=== PATIENT | female | born 1970 | race Caucasian/White ===

== ENCOUNTER 2018-06-14 12:00 | Emergency (ER) | payer BC ==
[2018-06-14 12:05] VITALS: BP 164/98
--- NOTE | 2018-06-14 12:35 | UC ---
Skin Complaint HPI - HPI Summary HPI Summary: Patient is a 48-year-old female presenting to the 2 weeks after a cat scratch or bite (she is unsure.) She states the area began to become more red, slightly swollen and painful. She denies any fevers, sweats, chills. She denies any streaking from the red area. The redness and warmth begins approximately 4 cm chest below the knee and extending to the ankle on the anterior portion of the lower extremity. She has not been taking anything at home for the pain. She endorses 3/10 pain, only when palpated. - History of Current Complaint Chief Complaint: UCSkin Time Seen by Provider: 06/14/18 12:09 Stated Complaint: L LEG COMPLAINT Hx Obtained From: Patient Hx Last Menstrual Period: 06/12/18 ?: No Onset/Duration: Sudden Onset Skin Exposure Onset/Duration: Weeks Ago Onset Severity: Moderate Current Severity: Moderate Pain Intensity: 0 Pain Scale Used: 0-10 Numeric Location: Diffuse, Discrete - left anterior lower extremity Character: Swelling, Pain Aggravating Factor(s): Nothing Alleviating Factor(s): Nothing Associated Signs & Symptoms: Positive: Negative Related History: Possible Reaction to: Animal - Allergy/Home Medications Allergies/Adverse Reactions: Allergies Allergy/AdvReac Type Severity Reaction Status Date / Time No Known Allergies Allergy Verified 06/14/18 12:01 Home Medications: Home Medications Citalopram Hydrobromide [Citalopram HBr] 1 tab PO DAILY 06/14/18 [History Confirmed 06/14/18] PMH/Surg Hx/FS Hx/Imm Hx Previously Healthy: Yes - Surgical History Surgical History: Yes Surgery Procedure, Year, and Place: Breast BX 07/04/15 - benign - Family History Known Family History: Positive: Hypertension Negative: Cardiac Disease, Diabetes Family History: non contributory - Social History Occupation: Employed Full-time Lives: With Family Alcohol Use: None Substance Use Type: None Smoking Status (MU): Light Every Day Tobacco Smoker Type: Cigarettes - Immunization History Most Recent Influenza Vaccination: fall 2014 Most Recent Tetanus Shot: up to date per patient Review of Systems All Other Systems Reviewed And Are Negative: Yes Constitutional: Positive: Negative Skin: Positive: Rash, Other - left lower extremity erythema and warmth extending 4cm just distally from the knee and extending to just proximal to the ankle without streaking Respiratory: Positive: Negative Cardiovascular: Positive: Negative Motor: Positive: Negative, Other - denies decreased ROM Musculoskeletal: Positive: Edema - 1+ pitting edema to the L lower extremity Neurological: Positive: Negative Is Patient Immunocompromised?: Yes Physical Exam Triage Information Reviewed: Yes Appearance: Well-Appearing, No Pain Distress, Well-Nourished Vital Signs: Initial Vital Signs Temp 97.7 F 06/14/18 12:03 Pulse 93 06/14/18 12:03 Resp 17 06/14/18 12:03 BP 164/98 06/14/18 12:03 Pulse Ox 100 06/14/18 12:03 Vital Signs Reviewed: Yes Neck exam: Normal Neck: Positive: Supple Cardiovascular Exam: Normal Cardiovascular: Positive: RRR Musculoskeletal Exam: Normal Musculoskeletal: Positive: Strength Intact Neurological Exam: Normal Neurological: Positive: Alert Psychological: Positive: Normal Response To Family Skin: Positive: Other - left lower extremity erythema and warmth extending 4cm just distally from the knee and extending to just proximal to the ankle without streaking Course/Dx - Course Course Of Treatment: Patient is evaluated for left lower extremity pain, erythema, warmth and slight swelling. She denies any significant PMH. She denies any fevers, sweats, chills. She states this Scratched her or bit her 2 weeks ago and the area has been progressively worsening, more specifically over the last 4 days. Discussed with her at length return precautions. However, as patient is feeling otherwise well, not immunocompromised and erythema, warmth and redness is discretely located over the anterior portion of the left lower extremity, she will be discharged home with oral antibiotics. She is okay with this plan and discharge. Augmentin 875 twice daily 7 days. She is also encouraged ice and ibuprofen. - Differential Diagnoses - Skin Complaint Differential Diagnoses: Other - Cat scratch, cat bite - Diagnoses Provider Diagnosis: Cellulitis Discharge - Sign-Out/Discharge Documenting (check all that apply): Patient Departure All imaging exams completed and their final reports reviewed: No Studies - Discharge Plan Condition: Stable Disposition: HOME Prescriptions: Amoxicillin/Clavulanate TAB* [Augmentin TAB 875*] 875 mg PO BID #14 tab Patient Education Materials: Animal Bite (ED) Referrals: Kayode House NP [Primary Care Provider] - Additional Instructions: As discussed, you will need antibiotics for this cat scratch/bite which is now infected. If he develop any red streaking up or down the leg, worsening pain, you develop fevers, sweats, chills, you need to go to the ED Augmentin twice daily 7 days, do not miss a dose Start this medication immediately Ibuprofen 600 mg 3 times daily Ice and elevation to the area may help - Billing Disposition and Condition Condition: STABLE Disposition: Home
== END 2018-06-14 12:37 | disposition home or self-care (01) ==
LOC: UCEAST 12:00
DX: L03.116 Cellulitis of left lower limb (principal); W55.03XA Scratched by cat, initial encounter; Y92.9 Unspecified place or not applicable; F17.210 Nicotine dependence, cigarettes, uncomplicated
CPT/HCPCS: 99212; G0463